=== PATIENT | male | born 1955 | race Caucasian/White ===

== ENCOUNTER 2017-08-27 11:45 | Emergency (ER) | payer OTHER ==
[~2017-08-27 11:45] MED LIST: ASPI1TAB57 PO; DIAZ10TA PO; GABA300C5 PO; ZOCO40TA PO
[2017-08-27 11:47] VITALS: BP 137/99; PULSE 102; RESP 18; TEMP 98.2; O2SAT 97
[2017-08-27] MEDS ORDERED: MORPHINE SULFATE 8 MG/ML INJ IM ONE (12:15)
[2017-08-27] MEDS ORDERED: ONDANSETRON ODT 4 MG TAB PO/SL ONE (12:15)
[2017-08-27] MEDS ORDERED: SODIUM CHLORIDE 0.9% FLUSH 10 ML FLUSH IVF PRN (12:15)
--- NOTE | 2017-08-27 12:23 | PD ---
HPI Chief Complaint: Headache Time Seen by Provider: 12:08 Travel History International Travel<30 days: No Contact w/Intl Traveler<30days: No Traveled to known affect area: No History of Present Illness HPI patient states he has h/o tbi and is usually on neurontin and imitrex (which he' s out of). patient comes in today with 7/10, right sided, nonradiating PFSH Past Medical History Hx Anticoagulant Therapy: Yes Heart Rhythm Problems: No Cardiac Catheterization: No Cardiovascular Problems: Yes (HLD) High Cholesterol: Yes Congestive Heart Failure: No Diabetes: Yes Diminished Hearing: Yes (R. 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) Past Surgical History Abdominal Surgery: Yes (HERNIA REPAIR) Coronary Artery Bypass Graft: No Neurologic Surgery: Yes Other Surgery: Yes (MULTIPLE BRAIN SURGERIES, HEMORRHOIDECTOMY) Social History Alcohol Use: No Tobacco Use: No Substance Use: No Allergies-Medications (Allergen,Severity, Reaction): Coded Allergies: No Known Allergies (Unverified Allergy, Unknown, 08/27/17) Reported Meds & Prescriptions Reported Meds & Active Scripts Active Fioricet (Zxvhxsvamd-Zibqefaocohya-Gjddwyhv) 50-300-40 Mg Cap 1-2 Cap PO Q6H PRN Zofran Odt (Ondansetron Odt) 4 Mg Tab 4 Mg SL Q6HR PRN Imitrex Nasal Cataumet (Sumatriptan Succinate) 5 Mg/Act Cataumet 1 Cataumet NASAL ONCE PRN Cataumet in one nostril. If headache has not resolved within 2 hours or returns, the dose may be repeated once after 2 hours Reported Zocor (Simvastatin) 40 Mg Tab 40 Mg PO DAILY Gabapentin 300 Mg Cap 600 Mg PO TID Aspirin 81 (Aspirin) 81 Mg Tabdr 81 Mg PO DAILY Review of Systems Except as stated in HPI: all other systems reviewed are Neg General / Constitutional: No: Fever Eyes: No: Visual changes HENT: Positive: Headaches Cardiovascular: No: Chest Pain or Discomfort Respiratory: No: Shortness of Breath Gastrointestinal: No: Abdominal Pain Genitourinary: No: Dysuria Musculoskeletal: No: Pain Skin: No Rash Neurologic: No: Weakness Psychiatric: No: Depression Endocrine: No: Polydipsia Hematologic/Lymphatic: No: Easy Bruising Physical Exam Narrative GENERAL: SKIN: Warm and dry. HEAD: Atraumatic. Normocephalic. EYES: Pupils equal and round. No scleral icterus. No injection or drainage. ENT: No nasal bleeding or discharge. Mucous membranes pink and moist. NECK: Trachea midline. No JVD. CARDIOVASCULAR: Regular rate and rhythm. RESPIRATORY: No accessory muscle use. Clear to auscultation. Breath sounds equal bilaterally. GASTROINTESTINAL: Abdomen soft, non-tender, nondistended. MUSCULOSKELETAL: Extremities without clubbing, cyanosis, or edema. No obvious deformities. NEUROLOGICAL: Awake and alert. No obvious cranial nerve deficits. Motor grossly within normal limits. Five out of 5 muscle strength in the arms and legs. Normal speech. PSYCHIATRIC: Appropriate mood and affect; insight and judgment normal. Data Data Last Documented VS Vital Signs Date Time Temp Pulse Resp B/P (MAP) Pulse Ox O2 Delivery O2 Flow Rate FiO2 08/27/17 14:00 08/27/17 11:47 98.2 102 18 97 Room Air Orders Orders Ct Brain W/O Iv Contrast(Rout) (08/27/17 12:13) Sodium Chloride 0.9% Flush (Ns Flush) (08/27/17 12:15) Ondansetron Odt (Zofran Odt) (08/27/17 12:15) Morphine Inj (Morphine Inj) (08/27/17 12:15) Ed Discharge Order (08/27/17 13:28) [facility] Medical Decision Making Medical Screen Exam Complete: Yes Emergency Medical Condition: Yes Medical Record Reviewed: Yes Differential Diagnosis ich v sinusitis v tension morfin v migraine Narrative Course ct neg for new ich only old prior encephalomalacia which is c/w previous studies Diagnosis Primary Impression: headache Patient Instructions: Acute Headache (ED), General Instructions Scripts Xxuvfejeqv-Yecwudrlghrnm-Jkuqxjui (Fioricet) 50-300-40 Mg Cap 1-2 CAP PO Q6H Y for HEADACHE, #15 CAP 0 Refills Prov: Kit Traore MD 08/27/17 Ondansetron Odt (Zofran Odt) 4 Mg Tab 4 MG SL Q6HR Y for Nausea/Vomiting, #15 TAB 0 Refills Prov: Kit Traore MD 08/27/17 Sumatriptan Nasal Cataumet (Imitrex Nasal Cataumet) 5 Mg/Act Cataumet 1 SPRAY NASAL ONCE Y for MIGRAINE HEADACHE, #1 BOTTLE 0 Refills Cataumet in one nostril. If headache has not resolved within 2 hours or returns, the dose may be repeated once after 2 hours Prov: Kit Traore MD 08/27/17 Disposition: 01 DISCHARGE HOME Condition: Stable Kit Traore MD Aug 27, 2017 12:23
--- NOTE | 2017-08-27 13:05 | RADRPT ---
EXAM DATE/TIME: 08/27/2017 12:42 [place] COMPARISON: CT BRAIN W/O CONTRAST, March 13, 2016, 11:03. INDICATIONS : Headache. RADIATION DOSE: 30.56 CTDIvol (mGy) MEDICAL HISTORY : Seizures. Cardiovascular disease Hypertension.Diabetes. Brain bleed with skull fracture. SURGICAL HISTORY : Multiple brain surgeries. ENCOUNTER: Initial ACUITY: 1 day PAIN SCALE: 4/10 LOCATION: cranial TECHNIQUE: Multiple contiguous axial images were obtained of the head. Using automated exposure control and adj ustment of the mA and/or kV according to patient size, radiation dose was kept as low as reasonably a chievable to obtain optimal diagnostic quality images. DICOM format image data is available electro nically for review and comparison. FINDINGS: CEREBRUM: The ventricles are normal for age. There is an encephalomalacia are again noted involving the right temporal and parietal lobes and are stable. No evidence of midline shift, mass lesion, hemorrhage or acute infarction. No extra-axial fluid collections are seen. POSTERIOR FOSSA: The cerebellum and brainstem are intact. The 4th ventricle is midline. The cerebellopontine angle i s unremarkable. EXTRACRANIAL: The visualized portion of the orbits is intact. SKULL: The calvaria is intact. No evidence of skull fracture. The patient is status post right craniotomy. CONCLUSION: 1. Stable areas of encephalomalacia involving the right temporal and parietal lobes. 2. No acute infarct, acute hemorrhage, mass effect or extra-axial fluid collections. Roshan Covarrubias MD on August 27, 2017 at 13:02 Board Certified Radiologist. This report was verified electronically.
[2017-08-27] MEDS ORDERED: ZOFR4TAB3 SL (13:17)
[2017-08-27] MEDS ORDERED: BUTA1CAP PO (13:17)
[2017-08-27] MEDS ORDERED: SUMA5I NASAL (13:17)
== END 2017-08-27 14:01 | disposition home or self-care (01) ==
LOC: NEPD 11:45
DX: R51 Headache (principal); E78.00 Pure hypercholesterolemia, unspecified
CPT/HCPCS: 70450; 96372; 99284; J2270

== ENCOUNTER 2017-09-28 21:47 | Emergency (ER) | payer OTHER ==
[~2017-09-28] VITALS: Ht 177.8 cm; Wt 72.7 kg
[~2017-09-28 21:47] MED LIST changes: +BUTA1CAP PO; -DIAZ10TA PO; +SUMA5I NASAL; +ZOFR4TAB3 SL
[2017-09-28 21:49] VITALS: BP 135/103; PULSE 108; RESP 16; TEMP 98.7; O2SAT 97
[2017-09-28] MEDS ORDERED: CLON1 PO (22:04)
--- NOTE | 2017-09-28 22:12 | PD ---
HPI Chief Complaint: Musculoskeletal Complaint Time Seen by Provider: 22:01 Travel History International Travel<30 days: No Contact w/Intl Traveler<30days: No Traveled to known affect area: No History of Present Illness HPI 61-year-old male presents to emergency department for evaluation of a spasm of his left quadricep. Patient states that he worked out as normal. He did his stretches and then he noticed when he got up from his chair/quadricep is much tighter than his right. He states it is uncomfortable he does not believe he' ll be able to sleep with like this. He denies any limitations in range of motion. He denies any alterations in sensation. Patient has no other symptoms to report at this time. PFSH Past Medical History Hx Anticoagulant Therapy: Yes Anxiety: Yes Heart Rhythm Problems: No Cardiac Catheterization: No Cardiovascular Problems: Yes (abnormal heart valve, hyperlipidemia) High Cholesterol: Yes Congestive Heart Failure: No Diabetes: No (denied) Patient Takes Glucophage: No Diminished Hearing: Yes (R. 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) Tetanus Vaccination: < 5 Years Influenza Vaccination: No Past Surgical History Abdominal Surgery: Yes (HERNIA REPAIR) Coronary Artery Bypass Graft: No Neurologic Surgery: Yes Other Surgery: Yes (MULTIPLE BRAIN SURGERIES, HEMORRHOIDECTOMY) Family History Family Myocardial Infarction: Yes Social History Alcohol Use: No Tobacco Use: Yes (cigars) Substance Use: No Allergies-Medications (Allergen,Severity, Reaction): Coded Allergies: No Known Allergies (Unverified Allergy, Unknown, 09/28/17) Reported Meds & Prescriptions Reported Meds & Active Scripts Active Reported Klonopin (Clonazepam) 1 Mg Tab 1 Mg PO DAILY Zocor (Simvastatin) 40 Mg Tab 40 Mg PO DAILY Gabapentin 300 Mg Cap 600 Mg PO TID Aspirin 81 (Aspirin) 81 Mg Tabdr 81 Mg PO DAILY Review of Systems Except as stated in HPI: all other systems reviewed are Neg Physical Exam Narrative GENERAL: Well-nourished, well-developed male patient, ambulatory with a nonantalgic gait no acute distress. SKIN: Focused skin assessment warm/dry. HEAD: Normocephalic. EYES: No scleral icterus. No injection or drainage. NECK: Supple, trachea midline. No JVD or lymphadenopathy. CARDIOVASCULAR: Regular rate and rhythm without murmurs, gallops, or rubs. RESPIRATORY: Breath sounds equal bilaterally. No accessory muscle use. GASTROINTESTINAL: Abdomen soft, non-tender, nondistended. MUSCULOSKELETAL: No cyanosis, or edema. Palpable spasm of the left quadricep otherwise patient has full flexion-extension of the hip and knee of the left lower extremity. No erythema or edema. BACK: Nontender without obvious deformity. No CVA tenderness. Data Data Last Documented VS Vital Signs Date Time Temp Pulse Resp B/P (MAP) Pulse Ox O2 Delivery O2 Flow Rate FiO2 09/28/17 22:42 09/28/17 21:49 98.7 108 16 97 Orders Orders Ketorolac Inj (Toradol Inj) (09/28/17 22:15) Orphenadrine Inj (Norflex Inj) (09/28/17 22:15) Ed Discharge Order (09/28/17 22:30) [facility] Medical Decision Making Medical Screen Exam Complete: Yes Emergency Medical Condition: Yes Medical Record Reviewed: Yes Differential Diagnosis Muscle spasm versus strain versus tendon rupture Narrative Course 61-year-old male presents to emergency department for evaluation of a spasm of his left quadricep. Patient appears well. The area does feel spasmed or tight. He is given Norflex and counseled on stretching and care. He agrees to return immediately with any acute worsening symptoms. Diagnosis Primary Impression: Muscle spasm of left lower extremity Referrals: Primary Care Physician Patient Instructions: General Instructions, Muscle Spasm (ED) Additional Instructions: Warm compresses and light massage may help to alleviate your spasm Follow-up with her primary care provider Return immediately with acute worsening of symptoms Med/Other Pt SpecificInfo: No Change to Meds Disposition: 01 DISCHARGE HOME Condition: Stable MoralesLawanda crow ОЛЬГА Sep 28, 2017 22:12
[2017-09-28] MEDS ORDERED: ORPHENADRINE INJ 60 MG/2 ML AMP IM ONE (22:15)
[2017-09-28] MEDS ORDERED: KETOROLAC TROMETHAMINE 60 MG/2 ML (IM) VIAL IM ONE (22:15)
== END 2017-09-28 22:48 | disposition home or self-care (01) ==
LOC: NEPD 21:47
DX: M62.838 Other muscle spasm (principal); Z79.01 Long term (current) use of anticoagulants; E78.00 Pure hypercholesterolemia, unspecified; H91.90 Unspecified hearing loss, unspecified ear; I10 Essential (primary) hypertension; Z72.0 Tobacco use
CPT/HCPCS: 96372; 99284; J1885; J2360

== ENCOUNTER 2017-11-24 16:01 | Emergency (ER) | payer OTHER ==
[~2017-11-24] VITALS: Ht 177.8 cm; Wt 70.5 kg
[~2017-11-24 16:01] MED LIST changes: -BUTA1CAP PO; +CLON1 PO; -SUMA5I NASAL; -ZOFR4TAB3 SL
[2017-11-24 16:20] VITALS: BP 204/92; PULSE 76; RESP 18; TEMP 97.5; O2SAT 97
[2017-11-24 18:48] VITALS: BP 146/91; PULSE 62; RESP 17; O2SAT 98
[2017-11-24] MEDS ORDERED: SUMAtriptan INJ 6 MG/0.5 ML VIAL SQ ONE (19:00)
--- NOTE | 2017-11-24 19:02 | PD ---
HPI Chief Complaint: Headache Time Seen by Provider: 18:44 Travel History International Travel<30 days: No Contact w/Intl Traveler<30days: No Traveled to known affect area: No History of Present Illness HPI 62-year-old male with history of TBI in 1974, frequent headaches, here complaining of a migraine headache. He states that changes in weather and barometric pressure usually trigger a migraine. He complains of right-sided pain described as a pressure that radiates down his entire right body. No focal deficits. No vision changes. No paresthesias. No nausea. No photophobia. No fever. He reports that he used to be on Axalt for his migraines, however when he moved here from [place] 2 years ago he has not been able to find a provider to prescribe this medication for him. PFSH Past Medical History Hx Anticoagulant Therapy: Yes Anxiety: Yes Heart Rhythm Problems: No Cardiac Catheterization: No Cardiovascular Problems: Yes (abnormal heart valve, hyperlipidemia) High Cholesterol: Yes Congestive Heart Failure: No Diabetes: No (denied) Diminished Hearing: Yes (R. 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) Tetanus Vaccination: < 5 Years Influenza Vaccination: No Past Surgical History Abdominal Surgery: Yes (HERNIA REPAIR) Coronary Artery Bypass Graft: No Neurologic Surgery: Yes Other Surgery: Yes (MULTIPLE BRAIN SURGERIES, HEMORRHOIDECTOMY) Family History Family Myocardial Infarction: Yes Social History Alcohol Use: No Tobacco Use: Yes (cigars) Substance Use: No Allergies-Medications (Allergen,Severity, Reaction): Coded Allergies: No Known Allergies (Unverified Allergy, Unknown, 11/24/17) Reported Meds & Prescriptions Reported Meds & Active Scripts Active Reported Klonopin (Clonazepam) 1 Mg Tab 1 Mg PO DAILY Zocor (Simvastatin) 40 Mg Tab 40 Mg PO DAILY Gabapentin 300 Mg Cap 600 Mg PO TID Aspirin 81 (Aspirin) 81 Mg Tabdr 81 Mg PO DAILY Review of Systems Except as stated in HPI: all other systems reviewed are Neg Physical Exam Narrative GENERAL: Well-developed, well-nourished, awake, alert, no apparent distress. SKIN: Focused skin assessment warm/dry. HEAD: Right scalp with well-healed surgical scar with large area of depressed skull which is from the patient's surgery in 1974. EYES: Pupils equal, round, 3 mm, reactive to light. No scleral icterus. No injection or drainage. ENT: No nasal bleeding or discharge. Mucous membranes pink and moist. NECK: Trachea midline. No JVD. No nuchal rigidity. CARDIOVASCULAR: Regular rate and rhythm. RESPIRATORY: No accessory muscle use. Clear to auscultation. Breath sounds equal bilaterally. GASTROINTESTINAL: Abdomen soft, non-tender, nondistended. MUSCULOSKELETAL: No obvious deformities. No clubbing. No cyanosis. No edema. NEUROLOGICAL: Awake and alert. No obvious cranial nerve deficits. Motor grossly within normal limits. Normal speech. PSYCHIATRIC: Appropriate mood and affect; insight and judgment normal. Data Data Last Documented VS Vital Signs Date Time Temp Pulse Resp B/P (MAP) Pulse Ox O2 Delivery O2 Flow Rate FiO2 11/24/17 18:48 62 17 146/91 (109) 98 Room Air 11/24/17 16:20 97.5 Orders Orders Sumatriptan Inj (Imitrex Inj) (11/24/17 19:00) [facility] Medical Decision Making Medical Screen Exam Complete: Yes Emergency Medical Condition: Yes Medical Record Reviewed: Yes Differential Diagnosis Migraine headache, cluster headache, tension headache Narrative Course Patient has history of TBI with chronic intermittent headaches with a headache today that feels like his usual headaches. He was seen in the emergency department on 08/27/[address] head performed at that time that showed stable areas of encephalomalacia involving the right temporal and parietal lobes , no acute infarct, acute hemorrhage, mass-effect, or extra-axial fluid collections. Vital signs reviewed. The patient was given a dose of subcutaneous sumatriptan, and on reassessment he states he feels better. He is stable for discharge home with outpatient follow-up with his primary care physician this week. He was advised to return to the emergency department. He verbalizes understanding and agreement with plan. Diagnosis Primary Impression: Headache Qualified Codes: R51 - Headache Referrals: Primary Care Physician 3 days Additional Instructions: Follow-up with your primary care physician this week. Return to the emergency department for worsening symptoms or any other concerns. Disposition: 01 DISCHARGE HOME Condition: Stable Ty Anderson MD Nov 24, 2017 19:02
== END 2017-11-24 20:22 | disposition home or self-care (01) ==
LOC: NEPD 16:01
DX: R51 Headache (principal); E78.00 Pure hypercholesterolemia, unspecified; Z72.0 Tobacco use
CPT/HCPCS: 96372; 99283; J3030

== ENCOUNTER 2017-11-26 14:27 | Emergency (ER) | payer OTHER ==
[~2017-11-26] VITALS: Ht 177.8 cm; Wt 70.0 kg
[~2017-11-26 14:27] MED LIST changes: -CLON1 PO
[2017-11-26 14:34] VITALS: BP 174/79; PULSE 73; RESP 16; TEMP 98.5; O2SAT 98
[2017-11-26] MEDS ORDERED: KETOROLAC TROMETHAMINE 60 MG/2 ML (IM) VIAL IM ONE (16:15)
[2017-11-26] MEDS ORDERED: diphenhydrAMINE HCL 25 MG CAP PO ONE (16:15)
[2017-11-26] MEDS ORDERED: PROCHLORPERAZINE INJ 10 MG/2 ML VIAL IM ONE (16:15)
--- NOTE | 2017-11-26 16:53 | PD ---
HPI Chief Complaint: Headache Time Seen by Provider: 15:43 Travel History International Travel<30 days: No Contact w/Intl Traveler<30days: No Traveled to known affect area: No History of Present Illness HPI 62-year-old male presents to the emergency room for evaluation of right-sided headache radiating to his right ear. He has history of chronic migraines after 2 brain and skull injuries 40+ years ago and states this feels the same. He came to the emergency room 2 days ago for the same and was given subcu sumatriptan. States it relieved his headache at that time. The following morning his headache return but it was mild. Today it became too much for him so he came to the emergency room. He reports pain is greater in the right ear than in the head. Patient follows astrology and states that the changes in barometric pressure affect his head. This is typical of his migraines. No fever, chills, nausea, vomiting, or photophobia. Patient denies any weakness. States ever since stopping his diazepam, his headaches are less controlled. States his new primary care physician will not prescribe the medications he wants so he is in the process of switching. PFSH Past Medical History Hx Anticoagulant Therapy: Yes Anxiety: Yes Heart Rhythm Problems: No Cardiac Catheterization: No Cardiovascular Problems: Yes (abnormal heart valve, hyperlipidemia) High Cholesterol: Yes Congestive Heart Failure: No Diminished Hearing: Yes (R. 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) Past Surgical History Abdominal Surgery: Yes (HERNIA REPAIR) Coronary Artery Bypass Graft: No Neurologic Surgery: Yes Other Surgery: Yes (MULTIPLE BRAIN SURGERIES, HEMORRHOIDECTOMY) Family History Family Myocardial Infarction: Yes Social History Alcohol Use: No Tobacco Use: Yes ("CIGARS") Substance Use: No Allergies-Medications (Allergen,Severity, Reaction): Coded Allergies: No Known Allergies (Unverified Allergy, Unknown, 11/26/17) Reported Meds & Prescriptions Reported Meds & Active Scripts Active Reported Klonopin (Clonazepam) 1 Mg Tab 1 Mg PO DAILY Zocor (Simvastatin) 40 Mg Tab 40 Mg PO DAILY Gabapentin 300 Mg Cap 600 Mg PO TID Aspirin 81 (Aspirin) 81 Mg Tabdr 81 Mg PO DAILY Review of Systems Except as stated in HPI: all other systems reviewed are Neg Physical Exam Narrative GENERAL: Well-nourished, well-developed male in no acute distress. Afebrile. Ambulatory. Smiling, laughing. SKIN: Focused skin assessment warm/dry. HEAD: Normocephalic. EYES: No scleral icterus. No injection or drainage. NECK: Supple, trachea midline. No JVD or lymphadenopathy. CARDIOVASCULAR: Regular rate and rhythm without murmurs, gallops, or rubs. RESPIRATORY: Breath sounds equal bilaterally. No accessory muscle use. NEUROLOGICAL: Awake and alert. Cranial nerves II through XII intact. Motor and sensory grossly within normal limits. Five out of 5 muscle strength in all muscle groups. Normal speech. No pronator drift in upper or lower extremities. Data Data Last Documented VS Vital Signs Date Time Temp Pulse Resp B/P (MAP) Pulse Ox O2 Delivery O2 Flow Rate FiO2 11/26/17 14:34 98.5 73 16 174/79 (110) 98 Orders Orders Ketorolac Inj (Toradol Inj) (11/26/17 16:15) Prochlorperazine Inj (Compazine Inj) (11/26/17 16:15) Diphenhydramine (Benadryl) (11/26/17 16:15) [facility] Medical Decision Making Medical Screen Exam Complete: Yes Emergency Medical Condition: Yes Medical Record Reviewed: Yes Differential Diagnosis Headache, brain injury, intracranial hemorrhage Narrative Course 62-year-old male presents to the emergency room for evaluation of recurrent headaches. Today's presentation is typical of his migraines with gradual onset. There are no focal neurological deficits. Patient is laughing, smiling , loudly making conversation. He was here 2 days ago for the same and given sumatriptan which helped his headache but return yesterday. Patient given Toradol, Compazine, Benadryl in the emergency room. He reports significant improvement in headache. Patient is a very well-appearing. No indication for imaging at this time. Patient stable for outpatient follow-up with neurology. Diagnosis Primary Impression: Headache Qualified Codes: G44.329 - Chronic post-traumatic headache, not intractable Referrals: Primary Care Physician Additional Instructions: Rest and drink plenty of fluids. Take ibuprofen with food as directed, as needed for pain. Follow-up with neurologist. Return to the emergency room for worsening symptoms. Disposition: 01 DISCHARGE HOME Condition: Stable Agnieszka William Nov 26, 2017 16:53
== END 2017-11-26 17:05 | disposition home or self-care (01) ==
LOC: NEPD 14:27
DX: G44.329 Chronic post-traumatic headache, not intractable (principal); F41.9 Anxiety disorder, unspecified; E78.5 Hyperlipidemia, unspecified; I10 Essential (primary) hypertension; G40.909 Epilepsy, unspecified, not intractable, without status epilepticus; F17.290 Nicotine dependence, other tobacco product, uncomplicated
CPT/HCPCS: 96372; 99283; J0780; J1885

== ENCOUNTER 2018-01-14 09:10 | Emergency (ER) | payer OTHER ==
[2018-01-14] VITALS (7 sets, daily range): BP systolic 154–208; BP diastolic 81–105; PULSE 57–97; RESP 17–20; TEMP 98.4; O2SAT 97–98
[~2018-01-14] VITALS: Ht 177.8 cm; Wt 72.5 kg
[2018-01-14] MEDS ORDERED: IOHEXOL 350 MG/ML 50 ML BTL (for RAD DIAG) IVCONTRAST ONE (09:11)
[2018-01-14] MEDS ORDERED: MIRTA15 PO (09:26)
[2018-01-14] MEDS ORDERED: IMIT25TA PO (09:26)
[2018-01-14] MEDS ORDERED: SODIUM CHLORIDE 0.9% FLUSH 10 ML FLUSH IVF PRN (09:30)
[2018-01-14] MEDS ORDERED: MORPHINE SULFATE 4 MG/ML INJ IV PUSH ONE (09:30)
[2018-01-14] MEDS ORDERED: SODIUM CHLORID 0.9% 500 ML INJ 500 ML IV ONE (09:30)
[2018-01-14] MEDS ORDERED: ONDANSETRON HCL 4 MG/2 ML VIAL IV PUSH ONE (09:30)
[2018-01-14] MEDS ORDERED: NITROGLYCERIN 2% OINT 1 GM PACKET TOP ONE (09:30)
--- NOTE | 2018-01-14 09:37 | PD ---
HPI Chief Complaint: Cardiac Complaint Time Seen by Provider: 09:20 Travel History International Travel<30 days: No Contact w/Intl Traveler<30days: No Traveled to known affect area: No History of Present Illness HPI The patient is a 62-year-old male who presents to the emergency department for chest pain. The patient states he awakened this morning and then developed chest pain. The chest pain was located substernal, radiating to the left and right aspect of the chest, described as pressure, worse with inspiration, but still present at rest. He does complain of mild shortness of breath but denies any nausea, vomiting, or diaphoresis. The patient does have a history of hyperlipidemia, hypertension, smokes cigars, but denies any history of tobacco use or known coronary artery disease. The patient does have a family history of heart disease, his sister and father had heart attacks in their 60s. The patient states he is followed by his pool attendant, Dr. Richmond, and had a stress test approximately 1 year ago per his report. The patient did take 2 aspirin prior to arrival. Symptoms are moderate. He denies any history of pulmonary embolism, DVT, recent hospitalizations, recent surgery, recent travel in the last 3 months. He denies any acute cough. PFSH Past Medical History Hx Anticoagulant Therapy: Yes Anxiety: Yes Heart Rhythm Problems: No Cardiac Catheterization: No Cardiovascular Problems: Yes (abnormal heart valve, hyperlipidemia) High Cholesterol: Yes Congestive Heart Failure: No Diminished Hearing: Yes (R. 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) Tetanus Vaccination: < 5 Years Influenza Vaccination: No Past Surgical History Abdominal Surgery: Yes (HERNIA REPAIR) Coronary Artery Bypass Graft: No Neurologic Surgery: Yes Other Surgery: Yes (MULTIPLE BRAIN SURGERIES, HEMORRHOIDECTOMY) Family History Family Myocardial Infarction: Yes Social History Alcohol Use: No Tobacco Use: Yes ("CIGARS") Substance Use: No Allergies-Medications (Allergen,Severity, Reaction): Coded Allergies: No Known Allergies (Unverified Allergy, Unknown, 01/14/18) Reported Meds & Prescriptions Reported Meds & Active Scripts Active Reported Imitrex (Sumatriptan Succinate) 25 Mg Tab 25 Mg PO ONCE PRN If a satisfactory response has not been obtained at 2 hours, a second dose may be administered Mirtazapine 15 Mg Tab 15 Mg PO HS Zocor (Simvastatin) 40 Mg Tab 40 Mg PO DAILY Review of Systems Except as stated in HPI: all other systems reviewed are Neg General / Constitutional: No: Fever HENT: No: Lightheadedness Cardiovascular: Positive: Chest Pain or Discomfort Respiratory: Positive: Shortness of Breath, Pleuritic Pain Gastrointestinal: No: Nausea, Vomiting, Abdominal Pain Musculoskeletal: No: Edema Neurologic: No: Dizziness Physical Exam Narrative GENERAL: Awake, alert, pleasant 62-year-old male who appears his stated age and is in no acute respiratory distress. SKIN: Focused skin assessment warm/dry. HEAD: Atraumatic. Normocephalic. EYES: No injection or drainage. ENT: No nasal bleeding or discharge. Mucous membranes pink and moist. NECK: Trachea midline. No JVD. CARDIOVASCULAR: Regular rate and rhythm. No murmur appreciated. Heart rate in the 90s. RESPIRATORY: No accessory muscle use. Clear to auscultation. Breath sounds equal bilaterally. GASTROINTESTINAL: Abdomen soft, non-tender, nondistended. No rebound tenderness. MUSCULOSKELETAL: No obvious deformities. No clubbing. No cyanosis. No edema. Calves are soft bilaterally. NEUROLOGICAL: Awake and alert. No obvious cranial nerve deficits. Motor grossly within normal limits. Normal speech. Nonfocal. PSYCHIATRIC: Appropriate mood and affect; insight and judgment normal. Data Data Last Documented VS Vital Signs Date Time Temp Pulse Resp B/P (MAP) Pulse Ox O2 Delivery O2 Flow Rate FiO2 01/14/18 12:30 57 18 154/83 (106) 97 Room Air 01/14/18 09:13 98.4 Orders Orders Electrocardiogram (01/14/18:29) Ckmb (Isoenzyme) Profile (01/14/18:29) Complete Blood Count With Diff (01/14/18:29) Comprehensive Metabolic Panel (01/14/18:29) D-Dimer (01/14/18:29) Magnesium (Mg) (01/14/18:29) Prothrombin Time / Inr (Pt) (01/14/18:29) Act Partial Throm Time (Ptt) (01/14/18:29) Troponin I (01/14/18:29) Lipase (01/14/18:29) Ecg Monitoring (5/3/18 09:29) Bilateral Bp Monitoring (01/14/18 09:29) Iv Access Insert/Monitor (01/14/18 09:29) Oximetry (01/14/18 09:29) Oxygen Administration (01/14/18 09:29) Morphine Inj (Morphine Inj) (01/14/18 09:30) Nitroglycerin 2% Oint (Nitroglycerin 2% (01/14/18 09:30) Sodium Chloride 0.9% Flush (Ns Flush) (01/14/18 09:30) Sodium Chlorid 0.9% 500 Ml Inj (Ns 500 M (01/14/18 09:30) Chest, Pa & Lat (01/14/18 09:29) Ondansetron Inj (Zofran Inj) (01/14/18 09:30) CKMB (01/14/18 09:40) CKMB% (01/14/18 09:40) Ct Pulmonary Angiogram (01/14/18 ) Troponin I (01/14/18 13:27) Iohexol 350 Inj (Omnipaque 350 Inj) (01/14/18 09:11) Ed Discharge Order (01/14/18 14:32) Labs Laboratory Tests Test 01/14/18 09:40 01/14/18 10:40 01/14/18 13:35 White Blood Count 15.6 TH/MM3 Red Blood Count 4.86 MIL/MM3 Hemoglobin 14.9 GM/DL Hematocrit 43.9 % Mean Corpuscular Volume 90.5 FL Mean Corpuscular Hemoglobin 30.6 PG Mean Corpuscular Hemoglobin Concent 33.9 % Red Cell Distribution Width 13.7 % Platelet Count 226 TH/MM3 Mean Platelet Volume 9.9 FL Neutrophils (%) (Auto) 76.4 % Lymphocytes (%) (Auto) 16.5 % Monocytes (%) (Auto) 5.9 % Eosinophils (%) (Auto) 0.5 % Basophils (%) (Auto) 0.7 % Neutrophils # (Auto) 11.9 TH/MM3 Lymphocytes # (Auto) 2.6 TH/MM3 Monocytes # (Auto) 0.9 TH/MM3 Eosinophils # (Auto) 0.1 TH/MM3 Basophils # (Auto) 0.1 TH/MM3 CBC Comment DIFF FINAL Differential Comment Blood Urea Nitrogen 16 MG/DL Creatinine 1.43 MG/DL Random Glucose 113 MG/DL Total Protein 7.5 GM/DL Albumin 4.1 GM/DL Calcium Level 9.0 MG/DL Magnesium Level 1.9 MG/DL Alkaline Phosphatase 69 U/L Aspartate Amino Transf (AST/SGOT) 54 U/L Alanine Aminotransferase (ALT/SGPT) 37 U/L Total Bilirubin 0.4 MG/DL Sodium Level 139 MEQ/L Potassium Level 4.2 MEQ/L Chloride Level 108 MEQ/L Carbon Dioxide Level 25.8 MEQ/L Anion Gap 5 MEQ/L Estimat Glomerular Filtration Rate 50 ML/MIN Total Creatine Kinase 852 U/L Creatine Kinase MB 4.6 NG/ML Creatine Kinase MB % 0.5 % Troponin I LESS THAN 0.02 NG/ML LESS THAN 0.02 NG/ML Lipase 213 U/L Prothrombin Time 11.3 SEC Prothromb Time International Ratio 1.1 RATIO Activated Partial Thromboplast Time 23.3 SEC D-Dimer Quantitative (PE/DVT) 4.82 MG/L FEU Exceptions Acute Myocardial Infarction ASA Not Given on Arrival: Already taken by patient MDM Medical Decision Making Medical Screen Exam Complete: Yes Emergency Medical Condition: Yes Medical Record Reviewed: Yes Interpretation(s) EKG reveals normal sinus rhythm with a rate of 74. No ischemic changes or ectopy noted. Last Impressions Chest X-Ray 01/14/18 09 Signed Impressions: Service Date/Time: January 09:55 - CONCLUSION: 1. Superior endplate compression fracture of T9 vertebral body of unknown chronicity given lack of appropriate comparison studies. If patient has appropriate history and pain on palpation of the spinous process at this level, consider MRI examination for better evaluation. 2. Otherwise, no acute cardiopulmonary disease. Jayro Cano MD CT Angiography 01/14/18 0000 Signed Impressions: Service Date/Time: January 13:07 - CONCLUSION: The study is negative for pulmonary embolism. Flynn Santana MD Laboratory Tests Test 01/14/18 09:40 01/14/18 10:40 01/14/18 13:35 White Blood Count 15.6 TH/MM3 Red Blood Count 4.86 MIL/MM3 Hemoglobin 14.9 GM/DL Hematocrit 43.9 % Mean Corpuscular Volume 90.5 FL Mean Corpuscular Hemoglobin 30.6 PG Mean Corpuscular Hemoglobin Concent 33.9 % Red Cell Distribution Width 13.7 % Platelet Count 226 TH/MM3 Mean Platelet Volume 9.9 FL Neutrophils (%) (Auto) 76.4 % Lymphocytes (%) (Auto) 16.5 % Monocytes (%) (Auto) 5.9 % Eosinophils (%) (Auto) 0.5 % Basophils (%) (Auto) 0.7 % Neutrophils # (Auto) 11.9 TH/MM3 Lymphocytes # (Auto) 2.6 TH/MM3 Monocytes # (Auto) 0.9 TH/MM3 Eosinophils # (Auto) 0.1 TH/MM3 Basophils # (Auto) 0.1 TH/MM3 CBC Comment DIFF FINAL Differential Comment Blood Urea Nitrogen 16 MG/DL Creatinine 1.43 MG/DL Random Glucose 113 MG/DL Total Protein 7.5 GM/DL Albumin 4.1 GM/DL Calcium Level 9.0 MG/DL Magnesium Level 1.9 MG/DL Alkaline Phosphatase 69 U/L Aspartate Amino Transf (AST/SGOT) 54 U/L Alanine Aminotransferase (ALT/SGPT) 37 U/L Total Bilirubin 0.4 MG/DL Sodium Level 139 MEQ/L Potassium Level 4.2 MEQ/L Chloride Level 108 MEQ/L Carbon Dioxide Level 25.8 MEQ/L Anion Gap 5 MEQ/L Estimat Glomerular Filtration Rate 50 ML/MIN Total Creatine Kinase 852 U/L Creatine Kinase MB 4.6 NG/ML Creatine Kinase MB % 0.5 % Troponin I LESS THAN 0.02 NG/ML LESS THAN 0.02 NG/ML Lipase 213 U/L Prothrombin Time 11.3 SEC Prothromb Time International Ratio 1.1 RATIO Activated Partial Thromboplast Time 23.3 SEC D-Dimer Quantitative (PE/DVT) 4.82 MG/L FEU Differential Diagnosis Differential diagnosis includes acute coronary syndrome, esophageal spasm, GERD , peritonitis, myocarditis, pulmonary embolism, pancreatitis, pneumonia, pleurisy. Narrative Course IV was established, labs are drawn and sent, and the patient was placed on cardiac telemetry monitoring and continuous pulse oximetry monitoring. EKG was ordered and interpreted. 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 Chest x-ray was obtained. The patient does have pleuritic chest pain with a heart rate in the 90s, therefore, d-dimer was sent to lab. Chest x-ray reveals thoracic injury, chronicity unknown. Patient denies any acute trauma. D-dimer was positive, therefore, CT pulmonary angiogram was ordered. CT pulmonary angiographic is negative. A second troponin was ordered, was less than 0.02. Patient has atypical symptoms with pleuritic component. He is advised to follow-up with his pool attendant and return if symptoms worsen or progress. Patient was stable at discharge. Diagnosis Primary Impression: Chest pain, atypical Patient Instructions: General Instructions Additional Instructions: Please provide the patient a copy of his CT results, x-ray results, and lab results at discharge. Follow-up with your primary physician and pool attendant. Return if symptoms worsen or progress. Med/Other Pt SpecificInfo: No Change to Meds Disposition: 01 DISCHARGE HOME Condition: Stable Mick Mcdonald MD January 14, 2018 09:37
--- NOTE | 2018-01-14 10:06 | RADRPT ---
EXAM DATE/TIME: 01/14/2018 09:55 [facility] COMPARISON: CHEST SINGLE AP, January 16, 2017, 0:35. INDICATIONS : Mid sternal chest pains, short of breath. MEDICAL HISTORY : None. SURGICAL HISTORY : None. ENCOUNTER: Initial ACUITY: 1 day PAIN SCORE: 8/10 LOCATION: Bilateral chest FINDINGS: PA and lateral views of the chest demonstrate the lungs to be symmetrically aerated without evidence of mass, infiltrate or effusion. The cardiomediastinal contours are unremarkable. Superior endplate compression deformity of T9 vertebral body. CONCLUSION: 1. Superior endplate compression fracture of T9 vertebral body of unknown chronicity given lack of ap propriate comparison studies. If patient has appropriate history and pain on palpation of the spinous process at this level, consider MRI examination for better evaluation. 2. Otherwise, no acute cardiopulmonary disease. Jayro Cano MD on January 14, 2018 at 10:01 Board Certified Radiologist. This report was verified electronically.
[2018-01-14 10:13] LABS: AUTOMATED NEUTROPHIL # 11.9 TH/MM3 (1.8-7.7); BASOPHIL # 0.1 TH/MM3 (0-0.2); BASOPHIL % 0.7 % (0.0-2.0); EOSINOPHIL # 0.1 TH/MM3 (0-0.4); EOSINOPHIL % 0.5 % (0.0-4.0); HEMATOCRIT 43.9 % (39.0-51.0); HEMOGLOBIN 14.9 GM/DL (13.0-17.0); LYMPH % 16.5 % (9.0-44.0); LYMPHOCYTE # 2.6 TH/MM3 (1.0-4.8); MEAN CELL VOLUME 90.5 FL (80.0-100.0); MEAN CORPUSCULAR HEMOGLOBIN 30.6 PG (27.0-34.0); MEAN CORPUSCULAR HGB CONC 33.9 % (32.0-36.0); MEAN PLATELET VOLUME 9.9 FL (7.0-11.0); MONO % 5.9 % (0.0-8.0); MONOCYTE # 0.9 TH/MM3 (0-0.9); NEUT % 76.4 % (16.0-70.0); PLATELET COUNT 226 TH/MM3 (150-450); RED BLOOD COUNT 4.86 MIL/MM3 (4.50-5.90); RED CELL DISTRIBUTION WIDTH 13.7 % (11.6-17.2); WHITE BLOOD COUNT 15.6 TH/MM3 (4.0-11.0)
[2018-01-14 10:38] LABS: ALBUMIN 4.1 GM/DL (3.4-5.0); ALKALINE PHOSPHATASE 69 U/L (45-117); ALT (GPT) 37 U/L (12-78); AST (GOT) 54 U/L (15-37); BICARBONATE 25.8 MEQ/L (21.0-32.0); BLOOD UREA NITROGEN 16 MG/DL (7-18); CHLORIDE 108 MEQ/L (98-107); CREATININE 1.43 MG/DL (0.60-1.30); GLOMERULAR FILTRATION RATE 50 ML/MIN (>89); GLUCOSE,RANDOM 113 MG/DL (74-106); MAGNESIUM 1.9 MG/DL (1.5-2.5); SODIUM (NA) 139 MEQ/L (136-145); TOTAL BILIRUBIN ADULT 0.4 MG/DL (0.2-1.0); TOTAL PROTEIN 7.5 GM/DL (6.4-8.2); TROPONIN I LESS THAN 0.02 NG/ML (0.02-0.05)
[2018-01-14 11:09] LABS: INTERNATIONAL NORMALIZED RATIO 1.1 RATIO; PROTHROMBIN TIME - PATIENT 11.3 SEC (9.8-11.6)
[2018-01-14 11:10] LABS: D-DIMER 4.82 MG/L FEU (0.00-0.50)
--- NOTE | 2018-01-14 13:34 | RADRPT ---
EXAM DATE/TIME: 01/14/2018 13:07 [facility] COMPARISON: No previous studies available for comparison. INDICATIONS : Patient complains of chest pain. IV CONTRAST: 75 cc Omnipaque 350 (iohexol) IV RADIATION DOSE: 8.28 CTDIvol (mGy) MEDICAL HISTORY : Cardiovascular disease. Hypertension. Diabetes mellitus type 1.seizure SURGICAL HISTORY : None. ENCOUNTER: Initial ACUITY: 1 day PAIN SCALE: 2/10 LOCATION: chest TECHNIQUE: Volumetric scanning of the chest was performed using a pulmonary embolism protocol MIP images were re constructed. Using automated exposure control and adjustment of the mA and/or kV according to patien t size, radiation dose was kept as low as reasonably achievable to obtain optimal diagnostic quality images. DICOM format image data is available electronically for review and comparison. Follow-up recommendations for detected pulmonary nodules are based at a minimum on nodule size and pa tient risk factors according to Fleischner Society Guidelines. FINDINGS: PULMONARY ARTERIES: No filling defects are seen in the pulmonary arteries through the segmental level. LUNGS: There is no consolidation or pneumothorax . No concerning pulmonary nodule is visualized. Mild biba silar atelectasis. PLEURAE: There is no pleural thickening or pleural effusion. MEDIASTINUM: There is good visualization of the great vessels of the middle mediastinum. No evidence of mediastin al or hilar adenopathy/mass. CONCLUSION: The study is negative for pulmonary embolism. Flynn Santana MD on January 14, 2018 at 13:31 Board Certified Radiologist. This report was verified electronically.
--- NOTE | 2018-01-14 14:17 | EKG ---
Date Performed: 01/14/2018 Time Performed: 09:27:50 PTAGE: 62 years EKG: Sinus rhythm NORMAL ECG Since the PREVIOUS TRACING , no significant change noted PREVIOUS TRACIN03/30/2017 12.18 DOCTOR: Cathy Becerra Interpretating Date/Time 01/14/2018 14:15:01
== END 2018-01-14 14:58 | disposition home or self-care (01) ==
LOC: NEPE 09:10
DX: R07.89 Other chest pain (principal); E78.00 Pure hypercholesterolemia, unspecified; Z72.0 Tobacco use; Z79.899 Other long term (current) drug therapy
CPT/HCPCS: 71046; 71275; 80053; 82550; 82552; 83690; 83735; 84484; 85025; 85379; 85610; 85730; 93005; 96361; 96374; 96375; 99285; J2270; J2405; J7040; Q9967

== ENCOUNTER 2018-02-12 02:37 | Emergency (ER) | payer OTHER ==
[~2018-02-12] VITALS: Ht 177.8 cm; Wt 75.0 kg
[~2018-02-12 02:37] MED LIST changes: -ASPI1TAB57 PO; -GABA300C5 PO; +IMIT25TA PO; +MIRTA15 PO
[2018-02-12 03:18] VITALS: BP_SYST 182; BP_SYST 194; BP_DIAS 102; PULSE 86; RESP 20; TEMP 98.2; O2SAT 96
--- NOTE | 2018-02-12 05:29 | PD ---
HPI Chief Complaint: Headache Time Seen by Provider: 05:16 Travel History International Travel<30 days: No Contact w/Intl Traveler<30days: No Traveled to known affect area: No History of Present Illness HPI 62-year-old male with history of TBI 1974, frequent headaches, here complaining of a migraine headache. He states that the changes in weather usually triggered a migraine. He is complaining of a right-sided headache that radiates down his entire right side of his body. No focal deficits. No vision changes. No nausea. No photophobia. No fever. I evaluated the patient on for a similar presentation. The patient tells me that he needs morphine for his pain. When I told him I do not usually treat headaches with morphine he became irate and confrontational. He states that that is only thing that will help his pain. PFSH Past Medical History Hx Anticoagulant Therapy: Yes Anxiety: Yes Heart Rhythm Problems: No Cardiac Catheterization: No Cardiovascular Problems: Yes (abnormal heart valve, hyperlipidemia) High Cholesterol: Yes Congestive Heart Failure: No Diminished Hearing: Yes (R. 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) Tetanus Vaccination: < 5 Years Influenza Vaccination: No Past Surgical History Abdominal Surgery: Yes (HERNIA REPAIR) Coronary Artery Bypass Graft: No Neurologic Surgery: Yes Other Surgery: Yes (MULTIPLE BRAIN SURGERIES, HEMORRHOIDECTOMY) Family History Family Myocardial Infarction: Yes Social History Alcohol Use: No Tobacco Use: Yes ("CIGARS") Substance Use: No Allergies-Medications (Allergen,Severity, Reaction): Coded Allergies: No Known Allergies (Unverified Allergy, Unknown, 01/14/18) Reported Meds & Prescriptions Reported Meds & Active Scripts Active Reported Imitrex (Sumatriptan Succinate) 25 Mg Tab 25 Mg PO ONCE PRN If a satisfactory response has not been obtained at 2 hours, a second dose may be administered Mirtazapine 15 Mg Tab 15 Mg PO HS Zocor (Simvastatin) 40 Mg Tab 40 Mg PO DAILY Review of Systems Except as stated in HPI: all other systems reviewed are Neg Physical Exam Narrative GENERAL: Well-developed, well-nourished, sitting comfortably, no apparent distress. SKIN: Focused skin assessment warm/dry. HEAD: Abnormal shaped skull with surgical scars that are well-healed to the right scalp. EYES: Pupils equal, round, 3 mm, reactive to light. EOMI. No scleral icterus. No injection or drainage. ENT: Mucous membranes pink and moist. NECK: Trachea midline. No JVD. No nuchal rigidity. CARDIOVASCULAR: Regular rate and rhythm. No murmur appreciated. RESPIRATORY: No accessory muscle use. Clear to auscultation. Breath sounds equal bilaterally. GASTROINTESTINAL: Abdomen soft, non-tender, nondistended. MUSCULOSKELETAL: No obvious deformities. No clubbing. No cyanosis. No edema. NEUROLOGICAL: Awake and alert. No obvious cranial nerve deficits. Motor grossly within normal limits. Normal speech. PSYCHIATRIC: Initially calm, but became confrontational Data Data Last Documented VS Vital Signs Date Time Temp Pulse Resp B/P (MAP) Pulse Ox O2 Delivery O2 Flow Rate FiO2 02/12/18 03:18 98.2 86 20 182/102 (128) 96 Room Air Orders Orders Morphine Inj (Morphine Inj) (02/12/18 05:30) Ketorolac Inj (Toradol Inj) (02/12/18 06:15) MDM Medical Decision Making Medical Screen Exam Complete: Yes Emergency Medical Condition: Yes Differential Diagnosis Tension headache, cluster headache, migraine headache, SAH/meningitis/ encephalitis unlikely. Narrative Course Vital signs reviewed. The patient does have significant history of TBI with a CT scan that was performed in our system on 08/27/17 that showed stable areas of encephalomalacia involving the right temporal and parietal lobes, no acute infarct acute hemorrhage, mass-effect, or extra-axial fluid collections. There is clearly a psychotic component to the patient's presentation as he became very confrontational and irate when I told him that I do not treat headaches with morphine. I decided that because of his significant history I would give him a dose of morphine to see if this would help his symptoms. The patient is not in any distress and clinically does not appear to have a serious etiology for his headache such as SAH/meningitis or encephalitis. Patient was given 4 mg of IM morphine and 60 mg of IM Toradol and on reassessment he states he feels significantly improved and is ready for discharge home. He is stable for discharge home with outpatient follow-up with a primary care physician this week. He was advised on when to return to the emergency department. He verbalizes understanding and agreement with plan. Diagnosis Primary Impression: Headache Qualified Codes: R51 - Headache Referrals: Primary Care Physician 3 days Additional Instructions: Follow-up with a primary care physician this week. Return to the emergency department for worsening symptoms or any other concerns. Disposition: 01 DISCHARGE HOME Condition: Stable Ty Anderson MD Feb 12, 2018 05:29
[2018-02-12] MEDS ORDERED: MORPHINE SULFATE 4 MG/ML INJ IM ONE (05:30)
[2018-02-12] MEDS ORDERED: KETOROLAC TROMETHAMINE 60 MG/2 ML (IM) VIAL IM ONE (06:15)
== END 2018-02-12 06:48 | disposition home or self-care (01) ==
LOC: NEPE 02:37
DX: R51 Headache (principal); F41.9 Anxiety disorder, unspecified; E78.00 Pure hypercholesterolemia, unspecified; I10 Essential (primary) hypertension; J45.909 Unspecified asthma, uncomplicated; F17.290 Nicotine dependence, other tobacco product, uncomplicated; Z79.899 Other long term (current) drug therapy; Z86.69 Personal history of other diseases of the nervous system and sense organs; Z87.820 Personal history of traumatic brain injury
CPT/HCPCS: 96372; 99283; J1885; J2270